=== PATIENT | male | born 1965 | race Caucasian/White ===

== ENCOUNTER → 2017-01-02 | Outpatient (CLI) | payer MEDICAID ==
[~2017-01-02] MED LIST: IOPAMIDOL (ISOVUE-300) 100 ML BTL IV ONE
== END ==
LOC: FIMAGING 12:49
PROVIDERS: ATTEND Surgery
DX: Q79.59 Other congenital malformations of abdominal wall (principal); K57.90 Diverticulosis of intestine, part unspecified, without perforation or abscess without bleeding; M46.1 Sacroiliitis, not elsewhere classified; M43.28 Fusion of spine, sacral and sacrococcygeal region
CPT/HCPCS: Q9967